=== PATIENT | female | born 1960 | race Caucasian/White ===

== ENCOUNTER 2018-04-14 07:32 | Day surgery (SDC) | payer MEDICARE ==
[~2018-04-14] VITALS: Ht 160 cm; Wt 85.0 kg
[2018-04-14] MEDS ORDERED: SODIUM CHLORIDE 0.9% 1000ML 1,000 ML IV ONE (07:39)
[2018-04-14 08:01] VITALS: BP 128/78
[2018-04-14] MEDS ORDERED: ESCI10TA54 PO (08:42)
[2018-04-14] MEDS ORDERED: DOCU-282 PO (08:56)
[2018-04-14] MEDS ORDERED: OLOP2.5D6 OU (08:56)
[2018-04-14] MEDS ORDERED: RAMI5CAP66 PO (08:56)
[2018-04-14] MEDS ORDERED: BENZ-51 PO (08:56)
[2018-04-14] MEDS ORDERED: CETI10TA57 PO (08:56)
[2018-04-14] MEDS ORDERED: ZOLP5TAB8 PO (08:56)
[2018-04-14] MEDS ORDERED: ALPR1TAB7 PO (08:56)
[2018-04-14] MEDS ORDERED: BIOT10005 PO (08:56)
[2018-04-14] MEDS ORDERED: TRAZ-187 PO (08:56)
[2018-04-14] MEDS ORDERED: GLYCOPYRROLATE 0.2 MG/ML 5 ML VIAL ONE (10:32)
[2018-04-14] MEDS ORDERED: LIDOCAINE HCL-MPF 2% 5ML VIAL ONE (10:32)
[2018-04-14] MEDS ORDERED: PROPOFOL 10 MG/ML 20ML VIAL IV ONE (10:32)
[2018-04-14 10:47] VITALS: BP 135/91
[2018-04-14 10:55] VITALS: BP 111/80
[2018-04-14 11:05] VITALS: BP 101/70
[2018-04-14 11:15] VITALS: BP 117/69
[2018-04-14 11:20] VITALS: BP 113/69
== END 2018-04-14 11:25 | disposition home or self-care (01) ==
LOC: ENDO 07:32 → DAH 07:32 → ENDO 11:25
PROVIDERS: ATTEND Surgery
DX: K94.13 Enterostomy malfunction (principal); Z98.84 Bariatric surgery status; Z79.899 Other long term (current) drug therapy; Z79.84 Long term (current) use of oral hypoglycemic drugs; F41.9 Anxiety disorder, unspecified; K21.9 Gastro-esophageal reflux disease without esophagitis; F32.9 Major depressive disorder, single episode, unspecified; G47.30 Sleep apnea, unspecified; I10 Essential (primary) hypertension; J44.9 Chronic obstructive pulmonary disease, unspecified; E78.5 Hyperlipidemia, unspecified; Z88.0 Allergy status to penicillin; Z90.710 Acquired absence of both cervix and uterus; Z68.32 Body mass index [BMI] 32.0-32.9, adult
CPT/HCPCS: 43249; 43762; A4606; B4087; C1726; J2704; J3490 ×2; J7030; 43760

== ENCOUNTER 2021-01-16 07:06 | Day surgery (SDC) | payer MEDICARE ==
[2021-01-12 14:09] LABS: BASOPHILS % (AUTO) 0.7 % (0.0-5.0); EOSINOPHILS % (AUTO) 2.7 % (0.0-8.0); HEMATOCRIT 36.1 % (36-48); LYMPHOCYTES % (AUTO) 44.9 % (21.0-51.0); MEAN CORPUSCULAR HEMOGLOBIN 30.1 pg (27.0-33.0); MEAN CORPUSCULAR HGB CONC 31.3 g/dL (32.0-36.0); MONOCYTES % (AUTO) 5.6 % (3.0-13.0); PLATELET COUNT (AUTO) 397 K/uL (130-400); RED BLOOD CELL COUNT(AUTO) 3.76 MIL/uL (4.00-5.50); RED CELL DISTRIBUTION WIDTH 12.3 % (11.0-15.5); WHITE BLOOD COUNT (AUTO) 6.7 K/uL (4.8-10.8)
[2021-01-12 14:17] LABS: CREATININE 0.8 mg/dL (0.5-1.5); POTASSIUM 4.2 mmol/L (3.5-5.1)
[~2021-01-16] VITALS: Ht 160 cm; Wt 73.0 kg
[2021-01-16] VITALS (10 sets, daily range): BP systolic 91–129; BP diastolic 60–77
[~2021-01-16 07:06] MED LIST: ATOR20TA65 PO; CARI3CAP PO; DOCU-282 PO; DULO60CA45 PO; MULT-1203 PO; ONDA4TAB4 PO; PANT40TA54 PO; TRAZ-187 PO
[2021-01-16] MEDS ORDERED: 0.9%NACL 1000ML 1,000 ML IV ONE (07:18)
[2021-01-16] MEDS ORDERED: PROPOFOL 10 MG/ML 20ML VIAL IV ONE (08:13)
== END 2021-01-16 09:30 | disposition home or self-care (01) ==
LOC: DAH 07:06
PROVIDERS: ATTEND Surgery
DX: K21.9 Gastro-esophageal reflux disease without esophagitis (principal); R11.2 Nausea with vomiting, unspecified; Z20.822 Contact with and (suspected) exposure to COVID-19; J44.9 Chronic obstructive pulmonary disease, unspecified; G47.30 Sleep apnea, unspecified; I10 Essential (primary) hypertension; F41.9 Anxiety disorder, unspecified; F32.9 Major depressive disorder, single episode, unspecified; G47.00 Insomnia, unspecified; E78.5 Hyperlipidemia, unspecified; Z90.710 Acquired absence of both cervix and uterus; Z88.0 Allergy status to penicillin; Z98.890 Other specified postprocedural states; Z98.891 History of uterine scar from previous surgery
CPT/HCPCS: 36415; 43249; 80048; 85025; 87635; A4215 ×2; A4221; A4222; A4223; A4606; A4620; C9803; J2704; J7030

== ENCOUNTER 2023-07-23 06:32 | Day surgery (SDC) | payer OTHER, MEDICARE ==
[~2023-07-23] VITALS: Ht 160 cm; Wt 68.5 kg
[2023-07-23 06:30] VITALS: BP 111/74; PULSE 62; RESP 15
[~2023-07-23 06:32] MED LIST changes: -ATOR20TA65 PO; +ATOR40TA69 PO; +ESOM40CA PO; +FAMO40TA75 PO; +FERR-63 PO; +HYDR-3422 PO; +LINA290C PO; +MULT-952 PO; +ONDA4SOL PO; +QUET25TA36 PO; +TOPI25CA PO
[2023-07-23] MEDS ORDERED: 0.9%NACL 1000ML 1,000 ML IV ONE (06:40)
[2023-07-23] MEDS ORDERED: PROPOFOL 10 MG/ML 20ML VIAL IV ONE (07:41)
[2023-07-23] MEDS ORDERED: MIDAZOLAM HCL 1 MG/ML 2ML VIAL ONE (07:41)
== END 2023-07-23 08:45 | disposition home or self-care (01) ==
LOC: DAH 06:32 → SUH 08:45
PROVIDERS: ATTEND Surgery
DX: R13.10 Dysphagia, unspecified (principal); K21.9 Gastro-esophageal reflux disease without esophagitis; K44.9 Diaphragmatic hernia without obstruction or gangrene; K76.0 Fatty (change of) liver, not elsewhere classified; K29.70 Gastritis, unspecified, without bleeding; K59.04 Chronic idiopathic constipation; K57.30 Diverticulosis of large intestine without perforation or abscess without bleeding; K64.0 First degree hemorrhoids; E66.9 Obesity, unspecified; I10 Essential (primary) hypertension; J44.9 Chronic obstructive pulmonary disease, unspecified; F41.0 Panic disorder [episodic paroxysmal anxiety]; F31.9 Bipolar disorder, unspecified; G47.30 Sleep apnea, unspecified; Z86.010 Personal history of colon polyps; Z90.49 Acquired absence of other specified parts of digestive tract; Z90.710 Acquired absence of both cervix and uterus; Z98.891 History of uterine scar from previous surgery; Z98.84 Bariatric surgery status; Z98.890 Other specified postprocedural states; Z88.0 Allergy status to penicillin; Z68.28 Body mass index [BMI] 28.0-28.9, adult
CPT/HCPCS: 43239; J7030 ×2; J2250; J2704; A4620; A4215 ×2; A4223; A7002; A4222; A4221; A4663; A4606; J3490

== ENCOUNTER → 2023-08-14 | Outpatient (CLI) | payer OTHER, MEDICARE ==
[2023-08-14 13:52] LABS: BASOPHILS # (AUTO) 0.05 K/uL (0.00-0.20); BASOPHILS % (AUTO) 0.7 % (0.0-5.0); HEMATOCRIT 39.6 % (36-48); IMMATURE GRANULOCYTE ABSOLUTE 0.02 K/uL (0-1); LYMPHOCYTES # (AUTO) 3.6 K/uL (1.0-4.8); LYMPHOCYTES % (AUTO) 47.3 % (21.0-51.0); MEAN CORPUSCULAR HEMOGLOBIN 29.9 pg (27.0-33.0); MEAN CORPUSCULAR HGB CONC 31.6 g/dL (32.0-36.0); MEAN CORPUSCULAR VOLUME 94.7 fL (79-99); MONOCYTES # (AUTO) 0.5 K/uL (0.1-1.0); MONOCYTES % (AUTO) 6.5 % (3.0-13.0); NEUTROPHILS # (AUTO) 3.1 K/uL (1.8-7.7); NEUTROPHILS % (AUTO) 41.2 % (40.0-77.0); PLATELET COUNT (AUTO) 296 K/uL (130-400); RED BLOOD CELL COUNT(AUTO) 4.18 MIL/uL (4.00-5.50); RED CELL DISTRIBUTION WIDTH 13.5 % (11.0-15.5); WHITE BLOOD COUNT (AUTO) 7.5 K/uL (4.8-10.8)
[2023-08-14 14:13] LABS: ALBUMIN 3.3 g/dL (3.5-5.0); BILIRUBIN,TOTAL 0.2 mg/dL (0.2-1.0); TOTAL PROTEIN, SERUM 7.2 g/dL (6.0-8.3)
== END | disposition home or self-care (01) ==
LOC: LAB 12:59
PROVIDERS: ATTEND Physician Assistant Medical
DX: K44.9 Diaphragmatic hernia without obstruction or gangrene (principal)
CPT/HCPCS: 36415; 80053; 85025

== ENCOUNTER → 2023-08-30 | Outpatient (CLI) | payer OTHER, MEDICARE ==
[~2023-08-30] MED LIST changes: +IOHEXOL-350 75 ML VIAL IV ONE
== END | disposition home or self-care (01) ==
LOC: RAH 09:15
PROVIDERS: ATTEND Physician Assistant Medical
DX: K44.9 Diaphragmatic hernia without obstruction or gangrene (principal); K57.30 Diverticulosis of large intestine without perforation or abscess without bleeding
CPT/HCPCS: 74160; Q9967